=== PATIENT | female | born 1970 | race Caucasian/White ===

== ENCOUNTER 2020-01-28 08:04 | Emergency (ER) | payer OTHER ==
[~2020-01-28] VITALS: Ht 170.2 cm; Wt 106.6 kg
[2020-01-28] MEDS ORDERED: LISINOPRIL-HCT1 EACH PO (08:14)
[2020-01-28] MEDS ORDERED: CELEXA10 M1 PO (08:14)
[2020-01-28] MEDS ORDERED: AMITRIPTYLINE H10 M1 PO (08:15)
[2020-01-28] MEDS ORDERED: SEROQUEL200 MG PO (08:15)
[2020-01-28] MEDS ORDERED: PROTONIX 20 MG20 MG PO (08:16)
[2020-01-28] MEDS ORDERED: ADVAIR 250-501 EACH INH (08:16)
[2020-01-28] MEDS ORDERED: PROTONIX 20 MG20 M1 PO (08:16)
[2020-01-28] MEDS ORDERED: PROAIR HFA8.5 GM INH (08:16)
[2020-01-28 08:30] LABS: ABSOLUTE BASOPHILS 0.2 thou/uL (0.0-0.2); ABSOLUTE EOSINOPHILS 0.7 thou/uL (0.0-0.7); ABSOLUTE LYMPHOCYTES 2.4 thou/uL (0.8-5.3); ABSOLUTE MONOCYTES 1.2 thou/uL (0.0-1.2); ABSOLUTE NEUTROPHILS 8.4 thou/uL (1.6-8.1); BASOPHILS 1.2 %; EOSINOPHILS 5.6 %; HEMATOCRIT 45.7 % (37.0-47.0); HEMOGLOBIN 15.1 gm/dL (12.0-15.0); LYMPHOCYTES 18.9 %; MCV 90.9 fL (80.0-100.0); MONOCYTES 9.6 %; MPV 8.7 fl. (7.2-11.1); NUCLEATED RBCS 0 /100WBC; PLATELET COUNT* 411 thou/uL (150-400); POLYS 64.7 %; RBC 5.03 mil/uL (4.20-5.00); RDW-CV 14.3 % (10.5-14.5); WBC 12.9 thou/uL (4.0-11.0)
[2020-01-28 08:46] LABS: APTT 22.4 Seconds (25.0-31.3)
[2020-01-28 09:20] LABS: CALCIUM 8.9 mg/dL (8.5-10.1); CREATININE 1.3 mg/dL (0.6-1.3); POTASSIUM 4.4 mmol/L (3.5-5.1)
[2020-01-28 09:35] LABS: MAGNESIUM 1.8 mg/dL (1.8-2.4); TOTAL BILIRUBIN 0.3 mg/dL (<0.1-1.0); TOTAL PROTEIN 7.7 g/dL (6.4-8.2)
[2020-01-28] MEDS ORDERED: NORCO 5-325 TA1 EAC2 PO (10:45)
[2020-01-28 10:59] VITALS: BP 113/86
--- NOTE | 2020-01-28 14:24 | EKG ---
[place] [address] ELECTROCARDIOGRAM REPORT Name: JENNIFER ASTORGA Mary Room: [facility]#: [id number] Admission: 01/28/20 Attend Phys: Discharge: 01/28/20 Date of : 74 Date of Service: 01/28/20 0804 Report #: [id number] THIS REPORT FOR: //name// [facility] ED Test Date: 2020-01-28 Test Time: 08:04:52 Pat Name: JENNIFER ASTORGA Department: Room: Gender: Operating Room Assistant: [facility] : 1970 Requested By: Rico Sosa Order Number: [id number] MD: Gabe Patel Measurements Intervals [place] Rate: 102 P: 21 GA: 153 QRS: 5 QRSD: 103 T: 3 QT: 330 QTc: 430 Interpretive Statements Sinus tachycardia Atrial premature complex Low voltage, precordial leads Borderline T abnormalities, diffuse leads No previous ECG available for comparison Electronically Signed On 01-28-2020 14:24:04 CDT by Gabe Patle [email or web address] <ELECTRONICALLY SIGNED> By: Gabe Patel MD, [facility] 01/28/20 1424 0804 0804 Gabe Patel MD, [facility] /EPI
== END 2020-01-28 10:59 | disposition home or self-care (01) ==
LOC: M.ERS 08:04
PROVIDERS: Family Medicine
DX: R07.89 Other chest pain (principal); R10.12 Left upper quadrant pain; I10 Essential (primary) hypertension; K21.9 Gastro-esophageal reflux disease without esophagitis; J45.909 Unspecified asthma, uncomplicated; F31.9 Bipolar disorder, unspecified; Z96.651 Presence of right artificial knee joint; Z90.710 Acquired absence of both cervix and uterus; Z88.0 Allergy status to penicillin

== ENCOUNTER 2020-02-26 06:25 | Emergency (ER) | payer OTHER ==
[~2020-02-26] VITALS: Ht 170.2 cm; Wt 108.9 kg
[~2020-02-26 06:25] MED LIST: ADVAIR 250-501 EACH INH; AMITRIPTYLINE H10 M1 PO; CELEXA10 M1 PO; LISINOPRIL-HCT1 EACH PO; NORCO 5-325 TA1 EAC2 PO; PROAIR HFA8.5 GM INH; PROTONIX 20 MG20 M1 PO; PROTONIX 20 MG20 MG PO; SEROQUEL200 MG PO
[2020-02-26 06:59] LABS: ABSOLUTE BASOPHILS 0.1 thou/uL (0.0-0.2); ABSOLUTE EOSINOPHILS 1.1 thou/uL (0.0-0.7); ABSOLUTE NEUTROPHILS 8.3 thou/uL (1.6-8.1); BASOPHILS 1.1 %; EOSINOPHILS 8.7 %; HEMATOCRIT 43.9 % (37.0-47.0); MCH 29.4 pg (26.0-34.0); MCV 92.1 fL (80.0-100.0); MONOCYTES 8.3 %; MPV 8.5 fl. (7.2-11.1); NUCLEATED RBCS 0 /100WBC; PLATELET COUNT* 414 thou/uL (150-400); POLYS 65.9 %; RBC 4.76 mil/uL (4.20-5.00); RDW-CV 14.7 % (10.5-14.5); WBC 12.6 thou/uL (4.0-11.0)
[2020-02-26 07:15] LABS: APTT 24.6 Seconds (25.0-31.3); PROTIME 10.3 Seconds (9.20-11.50)
[2020-02-26 07:25] LABS: CALCIUM 9.2 mg/dL (8.5-10.1); CREATININE 0.9 mg/dL (0.6-1.3); POTASSIUM 4.3 mmol/L (3.5-5.1)
[2020-02-26 07:36] LABS: TOTAL BILIRUBIN 0.4 mg/dL (<0.1-1.0)
[2020-02-26] MEDS ORDERED: DOXYCYCLINE 10100 MG PO (08:11)
[2020-02-26] MEDS ORDERED: MEDROLDOSEPACK PO (08:11)
[2020-02-26] MEDS ORDERED: PROAIR HFA8.5 GM INH (08:11)
[2020-02-26 08:35] VITALS: BP 121/83
--- NOTE | 2020-02-27 13:41 | EKG ---
[place] [address] ELECTROCARDIOGRAM REPORT Name: JENNIFER ASTORGA Mary Room: [facility]#: [id number] Admission: 02/26/20 Attend Phys: Discharge: 02/26/20 Date of : 74 Date of Service: 02/26/20 0649 Report #: [id number] THIS REPORT FOR: //name// [facility] ED Test Date: 2020-02-26 Test Time: 06:49:25 Pat Name: JENNIFER ASTORGA Department: Room: Gender: [employer]: [facility] : 1970 Requested By: Rico Sosa Order Number: [id number] MD: Gabe Patel Measurements Intervals [place] Rate: 96 P: 26 MN: 156 QRS: -1 QRSD: 101 T: 12 QT: 345 QTc: 436 Interpretive Statements Sinus rhythm R wave progression V2 to V3 of uncertain cause Compared to ECG 01/28/2020 08:04:52 Sinus tachycardia no longer present Atrial premature complex(es) no longer present T-wave abnormality no longer present Electronically Signed On 02-27-2020 13:41:13 CDT by Gabe Patel [email or web address] <ELECTRONICALLY SIGNED> By: Gabe Patel MD, FACC 02/27/20 1341 0649 0649 Gabe Patel MD, FACC /EPI
== END 2020-02-26 08:40 | disposition home or self-care (01) ==
LOC: M.ERS 06:25
PROVIDERS: Family Medicine
DX: J45.909 Unspecified asthma, uncomplicated (principal); Z20.828 Contact with and (suspected) exposure to other viral communicable diseases; I10 Essential (primary) hypertension; K21.9 Gastro-esophageal reflux disease without esophagitis; Z90.710 Acquired absence of both cervix and uterus; Z96.651 Presence of right artificial knee joint; Z88.6 Allergy status to analgesic agent; Z88.1 Allergy status to other antibiotic agents; Z88.5 Allergy status to narcotic agent

== ENCOUNTER 2020-08-07 04:31 | Emergency (ER) | payer OTHER ==
[~2020-08-07] VITALS: Ht 167.6 cm; Wt 107.0 kg
[~2020-08-07 04:31] MED LIST changes: +DOXYCYCLINE 10100 MG PO; +MEDROLDOSEPACK PO
[2020-08-07] MEDS ORDERED: METFORMIN HCL500 M3 PO (04:39)
[2020-08-07 05:18] LABS: ABSOLUTE BASOPHILS 0.1 thou/uL (0.0-0.2); ABSOLUTE EOSINOPHILS 0.7 thou/uL (0.0-0.7); ABSOLUTE MONOCYTES 1.1 thou/uL (0.0-1.2); ABSOLUTE NEUTROPHILS 7.8 thou/uL (1.6-8.1); BASOPHILS 0.8 %; EOSINOPHILS 6.2 %; HEMATOCRIT 43.5 % (37.0-47.0); HEMOGLOBIN 14.1 gm/dL (12.0-15.0); MCH 29.1 pg (26.0-34.0); MCHC 32.3 g/dL (28.0-37.0); MONOCYTES 9.4 %; MPV 8.7 fl. (7.2-11.1); NUCLEATED RBCS 0 /100WBC; PLATELET COUNT* 402 thou/uL (150-400); POLYS 66.6 %; RBC 4.83 mil/uL (4.20-5.00); RDW-CV 14.3 % (10.5-14.5); WBC 11.7 thou/uL (4.0-11.0)
[2020-08-07 05:20] LABS: CALCIUM 8.7 mg/dL (8.5-10.1); CREATININE 0.8 mg/dL (0.6-1.3); POTASSIUM 4.7 mmol/L (3.5-5.1)
[2020-08-07 05:25] LABS: ALBUMIN 3.6 g/dL (3.4-5.0); TOTAL BILIRUBIN 0.3 mg/dL (<0.1-1.0); TOTAL PROTEIN 7.6 g/dL (6.4-8.2)
[2020-08-07] MEDS ORDERED: TORADOL 10 MG T10 MG PO (06:43)
[2020-08-07] MEDS ORDERED: NORFLEX100 MG PO (06:43)
[2020-08-07 06:50] VITALS: BP 120/86
== END 2020-08-07 06:50 | disposition home or self-care (01) ==
LOC: M.ERS 04:31
PROVIDERS: Personal Emergency Response Attendant
DX: M54.42 Lumbago with sciatica, left side (principal); I10 Essential (primary) hypertension; K21.9 Gastro-esophageal reflux disease without esophagitis; F31.9 Bipolar disorder, unspecified; J45.909 Unspecified asthma, uncomplicated; Z96.651 Presence of right artificial knee joint; Z90.49 Acquired absence of other specified parts of digestive tract; Z90.89 Acquired absence of other organs; Z98.890 Other specified postprocedural states; Z79.2 Long term (current) use of antibiotics; Z79.899 Other long term (current) drug therapy; Z88.6 Allergy status to analgesic agent; Z88.1 Allergy status to other antibiotic agents; Z88.8 Allergy status to other drugs, medicaments and biological substances